=== PATIENT | male | born 1990 | race Caucasian/White ===

== ENCOUNTER 2016-07-25 19:17 | Emergency (ER) | payer OTHER ==
--- NOTE | 2016-07-25 19:51 | ED NURSING NOTES ---
Clinical Report - Nurses [facility] [address] [place] [address] 07/25/2016 19:16 Patient: YOUSIF ISIDRO TRIAGE Triage time 1925. Acuity: LEVEL 4. Chief Complaint: SORE THROAT. Alert. No acute distress. --19:33 Gogo Gonzalez 19:30 07/25/16. BP: 142/83. HR: 72. RR: 16. O2 saturation: 98%. Temp: 97.8 F. Pain level now 5/10. --19:33 Gogo Gonzalez. Weight: 93.9 kg. Height/Length: 67 inches. BMI: 32.5. --19:30 Gogo Gonzalez. Medications Ibuprofen Oral. --19:31 Gogo Gonzalez. Allergies Erythromycin. --19:31 Gogo Gonzalez Penicillins. --19:31 Gogo Gonzalez. History Arrived by private vehicle. Historian: patient. Accompanied by family. This started yesterday. 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 SOCIAL HX: Smoker- current status unknown. Occasional alcohol use. --19:33 Gogo Gonzalez. PROBLEMS: Cellulitis. Paronychia. --19:31 Gogo Gonzalez. Interventions To treatment room. --19:33 Gogo Gonzalez. PHYSICAL ASSESSMENT Ambulatory to room. GENERAL / NEURO / PSYCH: Alert. Oriented X 4. Appears in no acute distress. HEENT: Pupils equal, round and reactive to light. Pharyngeal erythema. Tonsillar exudate present. Voice within normal limits. Mouth within normal limits upon inspection. No dental injury noted. Mucous membranes are pink. RESPIRATORY: Respirations not labored. CVS: Capillary refill less than 2 seconds. SKIN: Skin is warm and dry. Normal skin turgor. --19:33 Gogo Gonzalez. NURSING PROGRESS NOTES Throat swab obtained. --19:33 Gogo Gonzalez Patient ready for evaluation- chart flagged. --19:33 Gogo Gonzalez 20:01 07/25/2016 Dexamethasone (Dexamethasone) PO 4 mg given. Allergies verified and confirmed 5 rights. --20:01 Gogo Gonzalez. DISPOSITION / DISCHARGE Departure time: 2004. Condition at departure: unchanged and stable. No learning barriers present. Discharge instructions provided and reviewed with the patient. Reviewed medication(s). Patient verbalized understanding. Written instructions provided in Nigerian. The patient was discharged by the physician casting assistant. He was discharged home and accompanied by spouse. He left the Emergency Department ambulatory and via private vehicle. Spouse driving. --20:06 Gogo Gonzalez 20:06 07/25/16. BP: 125/93. HR: 71. RR: 16. O2 saturation: 100%. Pain level now 510. --20:06 Gogo Gonzalez. Locked/Released at 07/25/2016 20:07 by Gogo Gonzalez,
--- NOTE | 2016-07-25 19:51 | ED CLINICAL REPORT ---
Clinical Report - Physicians/Mid Levels [facility] [address] [place] [address] 07/25/2016 19:16 Patient: YOUSIF ISIDRO Time Seen: 19:36 Jul 25 2016. Arrived- By private vehicle. Historian- patient. HISTORY OF PRESENT ILLNESS Chief Complaint: SORE THROAT. This started yesterday and is still present. Pain described as mild. The patient has had a sore throat. No nasal discharge or congestion, toothache or swollen jaw. (Mild cough. No sick contacts, No emesis/ diarrhea.). REVIEW OF SYSTEMS No fever, diarrhea, abdominal pain or headache. He has had a cough. All systems otherwise negative, except as recorded above. PAST HISTORY Problems: Cellulitis. Paronychia. Medications: Ibuprofen Oral. Allergies: Erythromycin. Penicillins. SOCIAL HISTORY Alcohol use. ADDITIONAL NOTES The nursing notes have been reviewed. PHYSICAL EXAM Vital Signs: 07/25/2016 19:30 BP: 142/83. HR: 72. RR: 16. O2 saturation: 98%. Temp: 97.8 F. Appearance: Alert. No acute distress. Head: Normal external inspection. ENT: Pharyngeal erythema. Right-sided tonsillar exudate and erythema. Left-sided tonsillar erythema. Pharynx normal. Neck: Lymphadenopathy present. Trachea midline. CVS: Normal heart rate and rhythm. Heart sounds normal. Respiratory: No respiratory distress. Breath sounds normal. Skin: Normal skin color. No rash. LABS, X-RAYS, AND EKG Laboratory Tests: Culture, Strep Screen: (REYNA: 07/25/2016 19:25) ( MsgRcvd 07/25/2016 19:49) Final results Test Result Flag Units (Reference) RAPID STREP SCREEN - THROAT DATE: 07/25/16 NEGATIVE SCREEN: RAPID STREP SCREEN NEGATIVE; CONFIRMATION TO FOLLOW . PROGRESS AND PROCEDURES Course of Care: uvula is midline, no distress, mild lymphadneopathy, however given age, and neg rapid strep, will await culture. Pt able to tolerate swallowing. Stable. Given steroid in er, and is now discharged to home care. Patient is stable. Physical exam findings are improved. Symptoms better. Patient/family counseled. Disposition: Discharged. CLINICAL IMPRESSION Acute viral pharyngitis INSTRUCTIONS Rest. Drink plenty of fluids. Warnings: Further evaluation is necessary. Prescription Medications: Tylenol with Codeine Tylenol #3 (30 mg / 300 mg) : take 1 tablet orally every 6 hours as needed for pain. Dispense ten (10). No refill. Follow-up: Follow up with your doctor in three days. (Electronically signed by Destinee Busch P.A.-C 07/25/2016 20:02)
--- NOTE | 2016-07-25 19:51 | ED CLINICAL REPORT ---
Clinical Report - Physicians/Mid Levels [facility] [address] [place] [address] 07/25/2016 19:16 Patient: YOUSIF ISIDRO Time Seen: 19:36 Jul 25 2016. Arrived- By private vehicle. Historian- patient. HISTORY OF PRESENT ILLNESS Chief Complaint: SORE THROAT. This started yesterday and is still present. Pain described as mild. The patient has had a sore throat. No nasal discharge or congestion, toothache or swollen jaw. (Mild cough. No sick contacts, No emesis/ diarrhea.). REVIEW OF SYSTEMS No fever, diarrhea, abdominal pain or headache. He has had a cough. All systems otherwise negative, except as recorded above. PAST HISTORY Problems: Cellulitis. Paronychia. Medications: Ibuprofen Oral. Allergies: Erythromycin. Penicillins. SOCIAL HISTORY Alcohol use. ADDITIONAL NOTES The nursing notes have been reviewed. PHYSICAL EXAM Vital Signs: 07/25/2016 19:30 BP: 142/83. HR: 72. RR: 16. O2 saturation: 98%. Temp: 97.8 F. Appearance: Alert. No acute distress. Head: Normal external inspection. ENT: Pharyngeal erythema. Right-sided tonsillar exudate and erythema. Left-sided tonsillar erythema. Pharynx normal. Neck: Lymphadenopathy present. Trachea midline. CVS: Normal heart rate and rhythm. Heart sounds normal. Respiratory: No respiratory distress. Breath sounds normal. Skin: Normal skin color. No rash. LABS, X-RAYS, AND EKG Laboratory Tests: Culture, Strep Screen: (REYNA: 07/25/2016 19:25) ( MsgRcvd 07/25/2016 19:49) Final results Test Result Flag Units (Reference) RAPID STREP SCREEN - THROAT DATE: 07/25/16 NEGATIVE SCREEN: RAPID STREP SCREEN NEGATIVE; CONFIRMATION TO FOLLOW . PROGRESS AND PROCEDURES Course of Care: uvula is midline, no distress, mild lymphadneopathy, however given age, and neg rapid strep, will await culture. Pt able to tolerate swallowing. Stable. Given steroid in er, and is now discharged to home care. Patient is stable. Physical exam findings are improved. Symptoms better. Patient/family counseled. Disposition: Discharged. CLINICAL IMPRESSION Acute viral pharyngitis INSTRUCTIONS Rest. Drink plenty of fluids. Warnings: Further evaluation is necessary. Prescription Medications: Tylenol with Codeine Tylenol #3 (30 mg / 300 mg) : take 1 tablet orally every 6 hours as needed for pain. Dispense ten (10). No refill. Follow-up: Follow up with your doctor in three days. (Electronically signed by Destinee Busch P.A.-C 07/25/2016 20:02)
--- NOTE | 2016-07-25 19:51 | ED NURSING NOTES ---
Clinical Report - Nurses [facility] [address] [place] [address] 07/25/2016 19:16 Patient: YOUSIF ISIDRO TRIAGE Triage time 1925. Acuity: LEVEL 4. Chief Complaint: SORE THROAT. Alert. No acute distress. --19:33 Gogo Gonzalez 19:30 07/25/16. BP: 142/83. HR: 72. RR: 16. O2 saturation: 98%. Temp: 97.8 F. Pain level now 5/10. --19:33 Gogo Gonzalez. Weight: 93.9 kg. Height/Length: 67 inches. BMI: 32.5. --19:30 Gogo Gonzalez. Medications Ibuprofen Oral. --19:31 Gogo Gonzalez. Allergies Erythromycin. --19:31 Gogo Gonzalez Penicillins. --19:31 Gogo Gonzalez. History Arrived by private vehicle. Historian: patient. Accompanied by family. This started yesterday. 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 SOCIAL HX: Smoker- current status unknown. Occasional alcohol use. --19:33 Gogo Gonzalez. PROBLEMS: Cellulitis. Paronychia. --19:31 Gogo Gonzalez. Interventions To treatment room. --19:33 Gogo Gonzalez. PHYSICAL ASSESSMENT Ambulatory to room. GENERAL / NEURO / PSYCH: Alert. Oriented X 4. Appears in no acute distress. HEENT: Pupils equal, round and reactive to light. Pharyngeal erythema. Tonsillar exudate present. Voice within normal limits. Mouth within normal limits upon inspection. No dental injury noted. Mucous membranes are pink. RESPIRATORY: Respirations not labored. CVS: Capillary refill less than 2 seconds. SKIN: Skin is warm and dry. Normal skin turgor. --19:33 Gogo Gonzalez. NURSING PROGRESS NOTES Throat swab obtained. --19:33 Gogo Gonzalez Patient ready for evaluation- chart flagged. --19:33 Gogo Gonzalez 20:01 07/25/2016 Dexamethasone (Dexamethasone) PO 4 mg given. Allergies verified and confirmed 5 rights. --20:01 Gogo Gonzalez. DISPOSITION / DISCHARGE Departure time: 2004. Condition at departure: unchanged and stable. No learning barriers present. Discharge instructions provided and reviewed with the patient. Reviewed medication(s). Patient verbalized understanding. Written instructions provided in Welsh. The patient was discharged by the physician licensed nursing assistant. He was discharged home and accompanied by spouse. He left the Emergency Department ambulatory and via private vehicle. Spouse driving. --20:06 Gogo Gonzalez 20:06 07/25/16. BP: 125/93. HR: 71. RR: 16. O2 saturation: 100%. Pain level now 510. --20:06 Gogo Gonzalez. Locked/Released at 07/25/2016 20:07 by Gogo Gonzalez,
--- NOTE | 2016-07-25 19:52 | ED ORDER SUMMARY ---
..... Patient: YOUSIF ISIDRO OrderSheet [facility] VisitID: [id number] [address] [place] [address] 26y, M Registration Date/Time: 07/25/2016 ORDER SHEET Weight: 93.9 kg Allergies: Erythromycin, Penicillins GENERAL ORDERS: Culture, Strep Screen Urgent (19:33 07/25/2016 Pam MelendrezALanette-C) (19:34 Joseph) MEDICATION ORDERS: Dexamethasone PO 4 mg (NOW) (19:50 07/25/2016 Pam Caro.ALanette-C) (20:01 Marcus) IV FLUIDS: ORDER SHEET NOTES: [Electronically signed by Destinee Busch P.A.-C (20:02 07/25/2016)] [Electronically signed by Gogo Gonzalez (20:07 07/25/2016)] [Electronically locked/signed by Gogo Gonzalez (20:07 07/25/2016)]
--- NOTE | 2016-07-25 19:52 | ED ORDER SUMMARY ---
..... Patient: YOUSIF ISIDRO OrderSheet [facility] VisitID: [id number] [address] [place] [address] 26y, M Registration Date/Time: 07/25/2016 ORDER SHEET Weight: 93.9 kg Allergies: Erythromycin, Penicillins GENERAL ORDERS: Culture, Strep Screen Urgent (19:33 07/25/2016 Pam MelendrezALanette-C) (19:34 Joseph) MEDICATION ORDERS: Dexamethasone PO 4 mg (NOW) (19:50 07/25/2016 Pam Caro.ALanette-C) (20:01 Marcus) IV FLUIDS: ORDER SHEET NOTES: [Electronically signed by Destinee Busch P.A.-C (20:02 07/25/2016)] [Electronically signed by Gogo Gonzalez (20:07 07/25/2016)] [Electronically locked/signed by Gogo Gonzalez (20:07 07/25/2016)]
--- NOTE | 2016-07-25 20:08 | ED DISCHARGE INSTRUCTIONS ---
Patient: YOUSIF ISIDRO General Instructions [facility] VisitID: [id number] [place] [address] 26y, M Registration Date/Time: 07/25/2016 Acute viral pharyngitis INSTRUCTIONS Rest. Drink plenty of fluids. Warnings: Further evaluation is necessary. Prescription Medications: Tylenol with Codeine Tylenol #3 (30 mg / 300 mg) : take 1 tablet orally every 6 hours as needed for pain. Dispense ten (10). No refill. Follow-up: Follow up with your doctor in three days. ADDITIONAL INFORMATION Viral Pharyngitis (Sore Throat) Your throat pain is due to an infection called "Viral Pharyngitis", commonly known as "Sore Throat". This is a contagious illness. It is spread through the air by coughing, kissing or by touching others after touching your mouth or nose. Symptoms include throat pain worse with swallowing, aching all over, headache and fever. Unlike strep throat, which is a bacterial infection, this illness does not require treatment with an antibiotic. Home Care: If your symptoms are severe, rest at home for the first 2-3 days. Children: Use acetaminophen (Tylenol) for fever, fussiness or discomfort. In infants over six months of age, you may use ibuprofen (Children's Motrin) instead of Tylenol. [NOTE: If your child has chronic liver or kidney disease or ever had a stomach ulcer or GI bleeding, talk with your lilliana doctor before using these medicines.] (Aspirin should never be used in anyone under 18 years of age who is ill with a fever. It may cause severe liver damage.) Adults: You may use acetaminophen (Tylenol) or ibuprofen (Motrin, Advil) to control pain or fever, unless another medicine was prescribed. [NOTE: If you have chronic liver or kidney disease or ever had a stomach ulcer or GI bleeding, talk with your doctor before using these medicines.] Throat lozenges or sprays (Chloraseptic and others) will reduce pain. Gargling with warm salt water will also reduce throat pain. Dissolve 1/2 teaspoon of salt in 1 glass of warm water. This is especially useful just before meals. Follow Up with your doctor or as directed by our staff if you are not improving over the next week. Get Prompt Medical Attention if any of the following occur: Fever over 100.5F (38.0C) oral, or over 101.5F (38.6C) rectal for more than three days New or worsening ear pain, sinus pain or headache Painful lumps in the back of your neck Unable to swallow liquids or open your mouth wide due to throat pain Trouble breathing or noisy breathing Muffled voice New rash You have been given the following additional information: Pharyngitis, Viral Rest. (Electronically signed by Destinee Busch P.A.-C 07/25/2016 20:02)
--- NOTE | 2016-07-25 20:08 | ED MED RECONCILIATION SUMMARY ---
Patient: YOUSIF ISIDRO Medication Reconciliation Report [facility] VisitID: [id number] [address] [place] [address] 26y, M Registration Date/Time: 07/25/2016 Weight: 93.9 kg Height/Length: 67 in. BMI: 32.5 ALLERGIES: Erythromycin, Penicillins The patient's Home Medications are listed below: THE FOLLOWING MEDICATIONS NEED TO BE RECONCILED: Ibuprofen Oral The source(s) of the original Home Medication information: Not obtained. The following Medications were given to the patient in the Emergency Department: Dexamethasone [PO] PO 4 mg, administered: 07/25/2016 8:01:00 PM The following Medications were prescribed to the patient: Tylenol with Codeine Tylenol #3 (30 mg / 300 mg) : take 1 tablet orally every 6 hours as needed for pain. Dispense ten (10). No refill. -- Destinee Busch, PLanetteALanette-C
--- NOTE | 2016-07-25 20:08 | ED MAR SUMMARY ---
..... Medication Administration Record [facility] [address] [place] [address] Patient: YOUSIF ISIDRO Visit ID: [id number] 26y, M Weight: 93.9 kg Height/Length: 67 in BMI: 32.5 ALLERGIES: Penicillins, Erythromycin Given 20:01 07/25/2016 Gogo Gonzalez, Medication Administered: DEXAMETHASONE [PO] (DEXAMETHASONE), Dose: 4 mg PO. Medication Ordered: Dexamethasone PO 4 mg (NOW).
--- NOTE | 2016-07-25 20:08 | ED MAR SUMMARY ---
..... Medication Administration Record [facility] [address] [place] [address] Patient: YOUSIF ISIDRO Visit ID: [id number] 26y, M Weight: 93.9 kg Height/Length: 67 in BMI: 32.5 ALLERGIES: Penicillins, Erythromycin Given 20:01 07/25/2016 Gogo Gonzalez, Medication Administered: DEXAMETHASONE [PO] (DEXAMETHASONE), Dose: 4 mg PO. Medication Ordered: Dexamethasone PO 4 mg (NOW).
--- NOTE | 2016-07-25 20:08 | ED MED RECONCILIATION SUMMARY ---
Patient: YOUSIF ISIDRO Medication Reconciliation Report [facility] VisitID: [id number] [address] [place] [address] 26y, M Registration Date/Time: 07/25/2016 Weight: 93.9 kg Height/Length: 67 in. BMI: 32.5 ALLERGIES: Erythromycin, Penicillins The patient's Home Medications are listed below: THE FOLLOWING MEDICATIONS NEED TO BE RECONCILED: Ibuprofen Oral The source(s) of the original Home Medication information: Not obtained. The following Medications were given to the patient in the Emergency Department: Dexamethasone [PO] PO 4 mg, administered: 07/25/2016 8:01:00 PM The following Medications were prescribed to the patient: Tylenol with Codeine Tylenol #3 (30 mg / 300 mg) : take 1 tablet orally every 6 hours as needed for pain. Dispense ten (10). No refill. -- Destinee Busch, PLanetteALanette-C
== END 2016-07-25 20:05 | disposition home or self-care (01) ==
LOC: ED SRH 19:17
DX: J02.8 Acute pharyngitis due to other specified organisms (principal); Z88.0 Allergy status to penicillin; Z88.1 Allergy status to other antibiotic agents
CPT/HCPCS: 90154; 90159; 90627